=== PATIENT | male | born 1965 | race Hispanic/Latino ===

== ENCOUNTER → 2025-03-10 | Day surgery (SDC) | payer OTHER ==
[~2025-03-10] MED LIST: GLYCOPYRROLATE INJ 0.2 MG/ML VIAL ONE; LIDOCAINE HCL 2% LOCAL INJ 5 ML SDV VIAL INJ ONE; PROPOFOL IV EMULSION 50 ML IV ONE
[2025-03-10] MEDS: LACTATED RINGER'S 1,000 ML ONE (13:51)
[2025-03-10 15:41] VITALS: TEMP 97
[2025-03-10 16:05] VITALS: BP 123/87; PULSE 70; RESP 18; O2SAT 99
== END | disposition home or self-care (01) ==
LOC: OR 12:39
PROVIDERS: ATTEND Internal Medicine Gastroenterology
DX: Z12.11 Encounter for screening for malignant neoplasm of colon (principal); K63.5 Polyp of colon; K64.8 Other hemorrhoids; Z71.89 Other specified counseling; E66.01 Morbid (severe) obesity due to excess calories; E11.9 Type 2 diabetes mellitus without complications; F17.210 Nicotine dependence, cigarettes, uncomplicated; Z71.6 Tobacco abuse counseling; Z01.810 Encounter for preprocedural cardiovascular examination; Z68.32 Body mass index [BMI] 32.0-32.9, adult; Z71.3 Dietary counseling and surveillance
CPT/HCPCS: 36415; 45385; 82948; 93005; J2003; J2704; J7121; 45380